=== PATIENT | male | born 1985 | race American Indian/Alaskan Native ===

== ENCOUNTER 2021-09-04 09:21 | Emergency (ER) | payer OTHER ==
[2021-09-04] MEDS ORDERED: TETANUS,DIPH,PERTUSS(ACELL) VACCINE 0.5 ML SYRINGE IM ONE (14:17)
[2021-09-04] MEDS ORDERED: LIDOCAINE 0.5%/EPINEPHRINE 1:200,000 VIAL (50 ML) MDV INFILTRATI ONE (14:17)
[2021-09-04] MEDS ORDERED: SODIUM CHLORIDE 0.9% IRR 500 ML BOTTLE IR ONE (14:18)
[2021-09-04] MEDS ORDERED: LIDOCAINE 1%/EPINEPHRINE 1:100,000 VIAL (20 ML) INFILTRATI NR (14:30)
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
[2021-09-04 16:28] LABS: Basophils % (Auto) 0.5 % (0.0-1.8); Eosinophils % (Auto) 0.3 % (0.0-4.3); Hematocrit 45.2 % (35.5-45.6); Hemoglobin 15.1 gm/dl (11.8-15.2); Lymphocytes # (Auto) 2.1 K/mm3 (1.2-5.4); Lymphocytes % (Auto) 29.2 % (13.4-35.0); Mean Corpuscular HGB Conc 33 % (32-34); Mean Corpuscular Volume 96 fl (84-94); Monocytes # (Auto) 0.6 K/mm3 (0.0-0.8); Monocytes % (Auto) 8.7 % (0.0-7.3); Red Blood Count 4.72 M/mm3 (3.65-5.03); Red Cell Distribution Width 13.4 % (13.2-15.2)
[2021-09-04 16:30] LABS: BUN/Creatinine Ratio 10; Blood Urea Nitrogen 9 mg/dL (9-20); Calcium 8.6 mg/dL (8.4-10.2); Hemolysis Index 17
[2021-09-04 16:40] LABS: Platelet Count 242 K/mm3 (140-440)
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
[2021-09-05 12:55] LABS: Amphetamine Screen,Urine Negative; Benzodiazepines Screen,Urine Negative; Cannabinoid Screen,Urine Negative; Methadone Screen,Urine Negative; Opiate Screen,Urine Negative
[2021-09-05 13:07] LABS: Bilirubin,Urine NEG (Negative); Blood,Urine NEG (Negative); Color,Urine Yellow (Yellow); Mucus,Urine 3+ /HPF; Protein,Urine <15 mg/dL mg/dL (Negative)
[2021-09-05 13:17] LABS: Cocaine Screen,Urine Positive
[2021-09-05] MEDS: SERTRALINE 25 MG TAB PO SCH (14:50)
--- NOTE | 2021-09-05 15:48 | Event Note ---
Patient is medically clear for psychiatric care. Awaiting inpatient placement
[2021-09-05] MEDS ORDERED: traZODone 50 MG TAB PO SCH (22:00)
[2021-09-06 00:24] VITALS: BP 134/86
--- NOTE | 2021-09-06 09:34 | Progress Note ---
Subjective - Reason for Consult Consult date: 09/06/21 Reason for consult: SI - Chief Complaint Chief complaint: The patient was seen this morning. he reports doing well. He states sleep and appetite as good. The patient denies any current suicidal ideation and denies hallucinations. REVIEW OF SYSTEMS Constitutional: Negative for weight loss ENT: Negative for stridor Respiratory: Negative for cough or hemoptysis All other systems reviewed and are negative MENTAL STATUS EXAMINATION General Appearance and Behavior: Age appropriate, good hygiene, wearing appropriate clothes, good eye contact, cooperative polite with questioning. Cooperation: Participating Psychomotor Behavior: abnormal Mood: "ok" Affect and affective range: congruent with mood Thought Process: Goal directed Thought Content:reality oriented Speech: Normal volume, Regular rate and rhythm Intellectual Functioning: Average Suicidal Ideation: Denies Homicidal Ideation: Denies Hallucinations: Denies Impulse Control: impaired Insight and Judgment: poor insight and judgment Memory: Normal Attention: Divided Orientation: Alert, oriented Assessment and Plan (1) Major depressive disorder (2) Current Visit: Yes Status: Acute RECOMMENDATIONS DC 1013 continue home meds. Continue Sertraline 25mg po daily Continue Trazodone 50 mg po daily Risks, benefits and alternatives of medications discussed with the patient, questions answered and consent obtained from patient. PSYCHOTHERAPY: Supportive psychotherapy provided MEDICAL: Per primary team DELIRIUM PRECAUTIONS: Please re-orient patient frequently, keep lights on during the day, and minimize benzodiazepines and opiates as these medications could worsen patient's confusion. 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 Supervisor Maintenance will provide patient with psychiatric out-patient resources. FOLLOW-UP: Will sign off. Thank you for the consult. Please contact with any questions and/or concerns. Medications and Allergies Mental Status Exam - Vital signs Last Vital Signs Temp 97.5 F L 09/05/21 21:00 Pulse 100 H 09/05/21 21:00 Resp 20 09/05/21 22:00 BP 134/86 09/05/21 21:00 Pulse Ox 96 09/05/21 22:00
[2021-09-06] MEDS: SERTRALINE 25 MG TAB PO SCH (11:03)
--- NOTE | 2021-09-06 11:56 | Event Note ---
Mr. Costa has been cleared by psychiatric team for discharge. I agree with disposition. Patient is discharged home with prescriptions.
== END 2021-09-06 12:35 | disposition home or self-care (01) ==
LOC: EEVIPCON 09:21 → ED 09:21
DX: S01.01XA Laceration without foreign body of scalp, initial encounter (principal); R45.851 Suicidal ideations; F43.10 Post-traumatic stress disorder, unspecified; Z20.822 Contact with and (suspected) exposure to COVID-19; Y09 Assault by unspecified means; Y93.89 Activity, other specified; Y92.89 Other specified places as the place of occurrence of the external cause; Y99.8 Other external cause status
CPT/HCPCS: 12002; 36415; 70450; 70486; 80048; 80307; 81001; 85025; 90471; 90715; 99285; J3490; U0003; 80320; G0480